=== PATIENT | female | born 1965 | race African-American/Black ===

== ENCOUNTER 2017-12-11 12:42 | Emergency (ER) | payer MEDICAID ==
[2017-12-11] MEDS ORDERED: Ketorolac 60 MG/2 ML SDV IM ONE (13:41)
--- NOTE | 2017-12-11 13:59 | CR ---
EXAMINATION: Left ankle HISTORY: Pain COMPARISON: None TECHNIQUE: 3 views FINDINGS/IMPRESSION: There is an oblique distal fibular fracture identified, essentially nondisplaced . Ankle mortise and talar dome appear preserved. Bone mineralization and joint spaces otherwise appea r normal.
--- NOTE | 2017-12-11 14:10 | EDM.PDOC ---
ED HPI GENERAL MEDICAL PROBLEM - General Chief Complaint: Lower Extremity Injury/Pain Stated Complaint: FALL Time Seen by Provider: 12/11/17 12:59 - History of Present Illness INITIAL COMMENTS - FREE TEXT/NARRATIVE: HISTORY AND PHYSICAL: History of present illness: Patient is a 52-year-old female who presents to the emergency room with complaints of left lateral ankle pain after slipping and falling on the ice. She denies hitting her head or any loss of consciousness. She does have some soft tissue swelling and pain when bearing weight. Denies any previous injury or surgery to the affected extremity. Denies any numbness, tingling of the extremity. Review of systems: As per history of present illness and below otherwise all systems reviewed and negative. Past medical history: As per history of present illness and as reviewed below otherwise noncontributory. Surgical history: As per history of present illness and as reviewed below otherwise noncontributory. Social history: No reported history of drug or alcohol abuse. Family history: As per history of present illness and as reviewed below otherwise noncontributory. Physical exam: Gen.: Well-developed and well-nourished 52-year-old -[place] female. Alert and oriented. Nontoxic appearing and in no acute distress. HEENT: Atraumatic, normocephalic, pupils reactive, negative for conjunctival pallor or scleral icterus, mucous membranes moist, throat clear, neck supple, nontender, trachea midline. Lungs: Clear to auscultation, breath sounds equal bilaterally, chest nontender. Heart: S1S2, regular, negative for clicks, rubs, or JVD. Abdomen: Soft, nondistended, nontender. Negative for masses or hepatosplenomegaly. Negative for costovertebral tenderness. Pelvis: Stable nontender. Genitourinary: Deferred. Rectal: Deferred. Extremities: Soft tissue swelling noted over the left lateral ankle, tender with palpation. Strong pedal pulses. Capillary refill less than 3 seconds. Good flexion and dorsiflexion. Skin is intact, warm, dry. negative for cords or calf pain. Neurovascular unremarkable. Neuro: Awake, alert, oriented. Cranial nerves II through XII unremarkable. Cerebellum unremarkable. Motor and sensory unremarkable throughout. Exam nonfocal. Diagnostics: X-ray Therapeutics: Toradol, half cast posterior splint, crutches Impression: Left nondisplaced fibular fracture Plan: 1. Please keep the splint that has been applied on the extremity. Use crutches to be nonweightbearing. Ice, elevate and rest the affected extremity. A prescription for [place] has been provided for you. This medication is a narcotic and may make you drowsy, do not take it while driving or needing to be functioning at work. He may take Tylenol and/or ibuprofen as needed for breakthrough pain. To not exceed 4 g of Tylenol in a 24-hour period. 2. As we discussed you need to follow-up with Orthopedics for follow-up within the next week. 3. Return to the ED as needed and as discussed. Definitive disposition and diagnosis as appropriate pending reevaluation and review of above. Onset: Today Duration: Hour(s): Location: Reports: Lower Extremity, Left Left Ankle Pain Score (Numeric/FACES): 10 - Related Data Allergies Allergy/AdvReac Type Severity Reaction Status Date / Time See scanned document Allergy Other Uncoded 12/11/17 12:55 Home Meds: Home Meds Gabapentin [Neurontin] 200 mg PO BID 12/11/17 [History] Sertraline [Zoloft] 100 mg PO DAILY 12/11/17 [History] traZODone HCl [Trazodone HCl] 50 mg PO BEDTIME 12/11/17 [History] Past Medical History Respiratory History: Reports: Asthma Psychiatric History: Reports: Depression Oncologic (Cancer) History: Reports: Colon - Past Surgical History GI Surgical History: Reports: Colon, Other (See Below) Other GI Surgeries/Procedures: sugery for colon cancer Female Surgical History: Reports: Section Social & Family History - Tobacco Use Smoking Status *Q: Never Smoker Second Hand Smoke Exposure: No - Caffeine Use Caffeine Use: Reports: Coffee - Recreational Drug Use Recreational Drug Use: No Review of Systems - Review of Systems Review Of Systems: ROS reveals no pertinent complaints other than HPI. ED EXAM, GENERAL - Physical Exam Exam: See Below (See dictation) Course - Vital Signs Last Recorded V/S: Last Vital Signs Temp 97.4 F 12/11/17 12:54 Pulse 73 12/11/17 12:54 Resp 16 12/11/17 12:54 BP 146/78 H 12/11/17 12:54 Pulse Ox 98 12/11/17 12:54 - Orders/Labs/Meds Meds: Medications Discontinued Medications Generic Name Dose Route Start Last Admin Trade Name Andi PRN Reason Stop Dose Admin Ketorolac Tromethamine 60 mg 12/11/17 13:41 Toradol IM 12/11/17 13:42 ONETIME ONE Departure - Departure Time of Disposition: 14:09 Disposition: Home, Self-Care 01 Condition: Good Clinical Impression: Closed fibular fracture Qualifiers: Encounter type: initial encounter Fibula location: distal Fracture morphology: unspecified fracture morphology Laterality: left Qualified Code(s): S82.832A - Other fracture of upper and lower end of left fibula, initial encounter for closed fracture - Discharge Information Referrals: PCP,None [Primary Care Provider] - Additional Instructions: My general discharge The following information is given to patients seen in the emergency department who are being discharged to home. This information is to outline your options for follow-up care. We provide all patients seen in our emergency department with a follow-up referral. The need for follow-up, as well as the timing and circumstances, are variable depending upon the specifics of your emergency department visit. If you don't have a primary care physician on staff, we will provide you with a referral. We always advise you to contact your personal physician following an emergency department visit to inform them of the circumstance of the visit and for follow-up with them and/or the need for any referrals to a consulting specialist. The emergency department will also refer you to a specialist when appropriate. This referral assures that you have the opportunity for follow-up care with a specialist. All of these measure are taken in an effort to provide you with optimal care, which includes your follow-up. Under all circumstances we always encourage you to contact your private physician who remains a resource for coordinating your care. When calling for follow-up care, please make the office aware that this follow-up is from your recent emergency room visit. If for any reason you are refused follow-up, please contact the [facility] Emergency Department at and asked to speak to the emergency department charge nurse. [facility] [address] [place] [address] [id number] [facility] Professional Building [address] [place] [address], [address] [place] [address] 1. Please keep the splint that has been applied on the extremity. Use crutches to be nonweightbearing. Ice, elevate and rest the affected extremity. A prescription for [place] has been provided for you. This medication is a narcotic and may make you drowsy, do not take it while driving or needing to be functioning at work. He may take Tylenol and/or ibuprofen as needed for breakthrough pain. To not exceed 4 g of Tylenol in a 24-hour period. 2. As we discussed you need to follow-up with Orthopedics for follow-up within the next week. 3. Return to the ED as needed and as discussed.
== END 2017-12-11 15:35 | disposition home or self-care (01) ==
LOC: MW.ED 12:42
DX: S82.832A Other fracture of upper and lower end of left fibula, initial encounter for closed fracture (principal); F32.9 Major depressive disorder, single episode, unspecified; Z79.899 Other long term (current) drug therapy; W00.0XXA Fall on same level due to ice and snow, initial encounter
CPT/HCPCS: 73610; 96372; 99283; J1885

== ENCOUNTER 2018-05-27 00:24 | Emergency (ER) | payer MEDICAID ==
[2018-05-27] MEDS ORDERED: Sodium Chloride 0.9% 2.5 ML Syringe FLUSH PRN (00:26)
[2018-05-27] MEDS ORDERED: Aspirin 81 MG Tab.Chew PO ONE (00:26)
[2018-05-27] MEDS ORDERED: Sodium Chloride 0.9% 10 ML Syringe FLUSH PRN ×2 (00:26)
[2018-05-27] MEDS ORDERED: Albuterol/Ipratropium 3.0-0.5 MG/3 ML Neb Soln NEB ONE (00:27)
--- NOTE | 2018-05-27 00:28 | EDM.PDOC ---
ED HPI GENERAL MEDICAL PROBLEM - General Chief Complaint: Chest Pain Stated Complaint: CHEST PAINS Time Seen by Provider: 05/27/18 00:28 Source of Information: Reports: Patient History Limitations: Reports: No Limitations - History of Present Illness INITIAL COMMENTS - FREE TEXT/NARRATIVE: HISTORY AND PHYSICAL: History of present illness: 53-year-old female presenting to emergency department with chief complaint of chest tightness 4 days with past medical history of depression/anxiety, asthma , and left ankle fracture. Patient states that on Friday approximate 4 days ago she began to have some chest tightness. States it was intermittent and substernal without radiation. Today states that the chest tightness has been constant and more severe so she came in to the emergency department for further evaluation. States that the chest tightness is substernal burning in sensation, non-radiating but with some associated diaphoresis. No nausea or vomiting. Patient does not have a significant cardiac history. She does have some shortness of breath with this. States that she has a history of asthma but only takes a rescue inhaler as needed. She also had a left ankle fracture in November. It has been in a boot and she has been doing physical therapy. Denies any surgery. No history of coagulapathies. Patient also was recently diagnosed with a sinus infection on of last week and is currently taking amoxicillin for this. She currently denies any palpitations, syncopal episodes, or focal neurologic deficits. On initial exam patient does have left calf pain associated with her left ankle fracture. She has generalized decreased breath sounds specifically bilateral lower lobes but no wheezing. Chest pain is not producible. Initial EKG showed sinus tach cardia with a rate of [address] changes. Review of systems: As per history of present illness and below otherwise all systems reviewed and negative. Past medical history: As per history of present illness and as reviewed below otherwise noncontributory. Surgical history: As per history of present illness and as reviewed below otherwise noncontributory. Social history: No reported history of drug or alcohol abuse. Family history: As per history of present illness and as reviewed below otherwise noncontributory. Physical exam: HEENT: Atraumatic, normocephalic, pupils reactive, negative for conjunctival pallor or scleral icterus, mucous membranes moist, throat clear, neck supple, nontender, trachea midline. Lungs: Decreased breath sounds bilateral lower lobes, breath sounds equal bilaterally, chest nontender. Heart: S1S2, regular, negative for clicks, rubs, or JVD. Abdomen: Soft, nondistended, nontender. Negative for masses or hepatosplenomegaly. Negative for costovertebral tenderness. Pelvis: Stable nontender. Genitourinary: Deferred. Rectal: Deferred. Extremities: Patient has a walking boot on the left lower extremity, negative for cords or calf pain. Neurovascular unremarkable. Neuro: Awake, alert, oriented. Cranial nerves II through XII unremarkable. Cerebellum unremarkable. Motor and sensory unremarkable throughout. Exam nonfocal. Diagnostics: CBC, CMP, troponin, INR, d-dimer, CTA, UA/UC Therapeutics: ASA 324mg PO, Duo-nebx1, Famotidine 20 mg IV x1, Solumedrol 125 mg IV x1 Impression: Acute asthma exacerbation Atypical chest pain Plan: CBC, CMP, troponin, INR, hCG were all unremarkable. EKG showed no significant ST changes. Patient's d-dimer was elevated at 2.58 most likely secondary to her fracture however we did do a CTA which showed no evidence of pulmonary embolism. Patient most likely has acute asthma exacerbation from her recent sinusitis and viral illness. She should continue to take her amoxicillin for sinusitis and I did describe her an inhaler as she does not have one currently. She should use it every 4-6 hours for 5 days. I also gave her 125 mg Solu- Medrol 1. Secondary to her fracture did not prescribe a burst dose of steroids secondary to decreased wound healing on her fracture. She is going to follow-up with her primary care provider Randi Cabral in the clinic and return to emergency department if she has any new or worsening symptoms. Definitive disposition and diagnosis as appropriate pending reevaluation and review of above. chest Pain Score (Numeric/FACES): 7 - Related Data Allergies Allergy/AdvReac Type Severity Reaction Status Date / Time No Known Allergies Allergy Verified 05/27/18 00:34 Home Meds: Home Meds Gabapentin [Neurontin] 200 mg PO BID 12/11/17 [History] Sertraline [Zoloft] 100 mg PO DAILY 12/11/17 [History] Amoxicillin 250 mg PO BID 05/27/18 [History] Meloxicam 0 mg PO DAILY 05/27/18 [History] Past Medical History Respiratory History: Reports: Asthma Psychiatric History: Reports: Depression Oncologic (Cancer) History: Reports: Colon - Past Surgical History GI Surgical History: Reports: Colon, Other (See Below) Other GI Surgeries/Procedures: sugery for colon cancer Female Surgical History: Reports: Section Social & Family History - Caffeine Use Caffeine Use: Reports: Coffee ED ROS GENERAL - Review of Systems Review Of Systems: ROS reveals no pertinent complaints other than HPI. ED EXAM, GENERAL - Physical Exam Exam: See Below Course - Vital Signs Last Recorded V/S: Last Vital Signs Temp 96.3 F 05/27/18 00:25 Pulse 110 H 05/27/18 00:25 Resp 20 05/27/18 00:25 BP 138/93 H 05/27/18 00:25 Pulse Ox 100 05/27/18 01:38 - Orders/Labs/Meds Orders: Active Orders 24 hr Category Date Time Status Cardiac Monitoring [RC] . DIRECTED Care 05/27/18 00:26 Active EKG Documentation Completion [RC] STAT Care 05/27/18 00:26 Active Oxygen Therapy [RC] ASDIRECTED Care 05/27/18 00:26 Active Pulse Oximetry [RC] ASDIRECTED Care 05/27/18 00:26 Active RT Aerosol Therapy [RC] ASDIRECTED Care 05/27/18 00:27 Active Chest w Cont [CT] Stat Exams 05/27/18 01:32 Stop Req PE Chest [Ang Chest] [CT] Stat Exams 05/27/18 01:39 Taken HCG QUALITATIVE,URINE [URCHEM] Stat Lab 05/27/18 01:16 Ordered UA W/MICROSCOPIC [URIN] Stat Lab 05/27/18 01:15 Ordered Sodium Chloride 0.9% [Saline Flush] Med 05/27/18 00:26 Active 10 ml FLUSH ASDIRECTED PRN Sodium Chloride 0.9% [Saline Flush] Med 05/27/18 00:26 Active 10 ml FLUSH ASDIRECTED PRN Sodium Chloride 0.9% [Saline Flush] Med 05/27/18 00:26 Active 2.5 ml FLUSH ASDIRECTED PRN Saline Lock Insert [OM.PC] Stat Oth 05/27/18 00:26 Ordered Medication Orders Sodium Chloride (Saline Flush) 10 ml FLUSH ASDIRECTED PRN PRN Reason: Keep Vein Open Sodium Chloride (Saline Flush) 10 ml FLUSH ASDIRECTED PRN PRN Reason: Keep Vein Open Sodium Chloride (Saline Flush) 2.5 ml FLUSH ASDIRECTED PRN PRN Reason: Keep Vein Open Labs: Laboratory Tests 05/27/18 05/27/18 05/27/18 Range/Units 00:25 00:25 00:35 WBC 6.62 (4.0-11.0) K/uL RBC 3.68 L (4.30-5.90) M/uL Hgb 10.7 L (12.0-16.0) g/dL Hct 33.1 L (36.0-46.0) % MCV 89.9 (80.0-98.0) fL MCH 29.1 (27.0-32.0) pg MCHC 32.3 (31.0-37.0) g/dL RDW Std Deviation 41.8 (28.0-62.0) fl RDW Coeff of Grace 13 (11.0-15.0) % Plt Count 359 (150-400) K/uL MPV 9.70 (7.40-12.00) fL Neut % (Auto) 66.9 (48.0-80.0) % Lymph % (Auto) 22.1 (16.0-40.0) % [place] % (Auto) 10.0 (0.0-15.0) % Eos % (Auto) 0.8 (0.0-7.0) % Baso % (Auto) 0.2 (0.0-1.5) % Neut # (Auto) 4.4 (1.4-5.7) K/uL Lymph # (Auto) 1.5 (0.6-2.4) K/uL [place] # (Auto) 0.7 (0.0-0.8) K/uL Eos # (Auto) 0.1 (0.0-0.7) K/uL Baso # (Auto) 0.0 (0.0-0.1) K/uL INR 1.06 D-Dimer, Quantitative 2.58 H (0.0-0.52) mg/LFEU Sodium 142 (136-145) mmol/L Potassium 3.8 (3.5-5.1) mmol/L Chloride 108 H (98-107) mmol/L Carbon Dioxide 28.6 (21.0-32.0) mmol/L BUN 13 (7.0-18.0) mg/dL Creatinine 0.8 (0.6-1.0) mg/dL Est Cr Clr Drug Dosing 72.34 mL/min Estimated GFR (MDRD) > 60.0 ml/min Glucose 156 H (74-106) mg/dL Calcium 9.0 (8.5-10.1) mg/dL Total Bilirubin 0.3 (0.2-1.0) mg/dL AST 21 (15-37) IU/L ALT 53 (14-63) IU/L Alkaline Phosphatase 157 H (46-116) U/L Troponin I < 0.050 (0.000-0.056) ng/mL Total Protein 7.5 (6.4-8.2) g/dL Albumin 2.7 L (3.4-5.0) g/dL Globulin 4.8 H (2.0-3.5) g/dL Albumin/Globulin Ratio 0.6 L (1.3-2.8) Urine Color Urine Appearance Urine pH (5.0-8.0) Ur Specific [place] (1.001-1.035) Urine Protein (NEGATIVE) mg/dL Urine Glucose (UA) (NEGATIVE) mg/dL Urine Ketones (NEGATIVE) mg/dL Urine Occult Blood (NEGATIVE) Urine Nitrite (NEGATIVE) Urine Bilirubin (NEGATIVE) Urine Urobilinogen (<2.0) EU/dL Ur Leukocyte Esterase (NEGATIVE) Urine RBC (0-2/HPF) Urine WBC (0-5/HPF) Ur Epithelial Cells (NONE-FEW) Amorphous Sediment (NEGATIVE) Urine Bacteria (NEGATIVE) Urine HCG, Qual (NEGATIVE) 05/27/18 05/27/18 Range/Units 01:15 01:16 WBC (4.0-11.0) K/uL RBC (4.30-5.90) M/uL Hgb (12.0-16.0) g/dL Hct (36.0-46.0) % MCV (80.0-98.0) fL MCH (27.0-32.0) pg MCHC (31.0-37.0) g/dL RDW Std Deviation (28.0-62.0) fl RDW Coeff of Grace (11.0-15.0) % Plt Count (150-400) K/uL MPV (7.40-12.00) fL Neut % (Auto) (48.0-80.0) % Lymph % (Auto) (16.0-40.0) % [place] % (Auto) (0.0-15.0) % Eos % (Auto) (0.0-7.0) % Baso % (Auto) (0.0-1.5) % Neut # (Auto) (1.4-5.7) K/uL Lymph # (Auto) (0.6-2.4) K/uL [place] # (Auto) (0.0-0.8) K/uL Eos # (Auto) (0.0-0.7) K/uL Baso # (Auto) (0.0-0.1) K/uL INR D-Dimer, Quantitative (0.0-0.52) mg/LFEU Sodium (136-145) mmol/L Potassium (3.5-5.1) mmol/L Chloride (98-107) mmol/L Carbon Dioxide (21.0-32.0) mmol/L BUN (7.0-18.0) mg/dL Creatinine (0.6-1.0) mg/dL Est Cr Clr Drug Dosing mL/min Estimated GFR (MDRD) ml/min Glucose (74-106) mg/dL Calcium (8.5-10.1) mg/dL Total Bilirubin (0.2-1.0) mg/dL AST (15-37) IU/L ALT (14-63) IU/L Alkaline Phosphatase (46-116) U/L Troponin I (0.000-0.056) ng/mL Total Protein (6.4-8.2) g/dL Albumin (3.4-5.0) g/dL Globulin (2.0-3.5) g/dL Albumin/Globulin Ratio (1.3-2.8) Urine Color YELLOW Urine Appearance CLEAR Urine pH 5.5 (5.0-8.0) Ur Specific [place] >= 1.030 (1.001-1.035) Urine Protein NEGATIVE (NEGATIVE) mg/dL Urine Glucose (UA) NEGATIVE (NEGATIVE) mg/dL Urine Ketones NEGATIVE (NEGATIVE) mg/dL Urine Occult Blood SMALL H (NEGATIVE) Urine Nitrite NEGATIVE (NEGATIVE) Urine Bilirubin NEGATIVE (NEGATIVE) Urine Urobilinogen 0.2 (<2.0) EU/dL Ur Leukocyte Esterase NEGATIVE (NEGATIVE) Urine RBC 0-2 (0-2/HPF) Urine WBC 2-3 (0-5/HPF) Ur Epithelial Cells FEW (NONE-FEW) Amorphous Sediment FEW (NEGATIVE) Urine Bacteria FEW (NEGATIVE) Urine HCG, Qual NEGATIVE (NEGATIVE) Meds: Medications Generic Name Dose Route Start Last Admin Trade Name Freq PRN Reason Stop Dose Admin Sodium Chloride 10 ml 05/27/18 00:26 Saline Flush FLUSH ASDIRECTED PRN Keep Vein Open Sodium Chloride 10 ml 05/27/18 00:26 Saline Flush FLUSH ASDIRECTED PRN Keep Vein Open Sodium Chloride 2.5 ml 05/27/18 00:26 Saline Flush FLUSH ASDIRECTED PRN Keep Vein Open Discontinued Medications Generic Name Dose Route Start Last Admin Trade Name Freq PRN Reason Stop Dose Admin Albuterol/Ipratropium 3 ml 05/27/18 00:27 05/27/18 00:38 Duoneb 3.0-0.5 Mg/3 Ml NEB 05/27/18 00:28 3 ml ONETIME ONE Administration Aspirin 324 mg 05/27/18 00:26 05/27/18 00:38 Aspirin PO 05/27/18 00:27 324 mg ONETIME ONE Administration Famotidine 20 mg 05/27/18 02:51 Pepcid IVPUSH 05/27/18 02:52 ONETIME ONE Iopamidol 50 ml 05/27/18 02:16 05/27/18 02:17 Isovue Multipack-370 (76%) IVPUSH 05/27/18 02:17 50 ml ONETIME STA Administration Methylprednisolone Sodium Succinate 125 mg 05/27/18 02:50 Solu-Medrol IVPUSH 05/27/18 02:51 ONETIME ONE Departure - Departure Time of Disposition: 02:56 Disposition: Home, Self-Care 01 Condition: Good Clinical Impression: Acute exacerbation of asthma with allergic rhinitis - Discharge Information Referrals: PCP,None [Primary Care Provider] - Forms: ED Department Discharge Additional Instructions: My general discharge The following information is given to patients seen in the emergency department who are being discharged to home. This information is to outline your options for follow-up care. We provide all patients seen in our emergency department with a follow-up referral. The need for follow-up, as well as the timing and circumstances, are variable depending upon the specifics of your emergency department visit. If you don't have a primary care physician on staff, we will provide you with a referral. We always advise you to contact your personal physician following an emergency department visit to inform them of the circumstance of the visit and for follow-up with them and/or the need for any referrals to a consulting specialist. The emergency department will also refer you to a specialist when appropriate. This referral assures that you have the opportunity for follow-up care with a specialist. All of these measure are taken in an effort to provide you with optimal care, which includes your follow-up. Under all circumstances we always encourage you to contact your private physician who remains a resource for coordinating your care. When calling for follow-up care, please make the office aware that this follow-up is from your recent emergency room visit. If for any reason you are refused follow-up, please contact the [facility] Emergency Department at and asked to speak to the emergency department charge nurse. [facility] [address] [place] [address] Follow-up with primary care provider as we discussed. Use albuterol inhaler every 4-6 hours 5 days. Return to emergency department if any new or worsening symptoms. - My Orders Last 24 Hours: My Active Orders 05/27/18 00:26 Cardiac Monitoring [RC] . DIRECTED EKG Documentation Completion [RC] STAT Oxygen Therapy [RC] ASDIRECTED Pulse Oximetry [RC] ASDIRECTED Sodium Chloride 0.9% [Saline Flush] 10 ml FLUSH ASDIRECTED PRN Sodium Chloride 0.9% [Saline Flush] 10 ml FLUSH ASDIRECTED PRN Sodium Chloride 0.9% [Saline Flush] 2.5 ml FLUSH ASDIRECTED PRN Saline Lock Insert [OM.PC] Stat 05/27/18 00:27 RT Aerosol Therapy [RC] ASDIRECTED 05/27/18 01:15 UA W/MICROSCOPIC [URIN] Stat 05/27/18 01:16 HCG QUALITATIVE,URINE [URCHEM] Stat 05/27/18 01:32 Chest w Cont [CT] Stat 05/27/18 01:39 PE Chest [Ang Chest] [CT] Stat - Assessment/Plan Last 24 Hours: My Active Orders 05/27/18 00:26 Cardiac Monitoring [RC] . DIRECTED EKG Documentation Completion [RC] STAT Oxygen Therapy [RC] ASDIRECTED Pulse Oximetry [RC] ASDIRECTED Sodium Chloride 0.9% [Saline Flush] 10 ml FLUSH ASDIRECTED PRN Sodium Chloride 0.9% [Saline Flush] 10 ml FLUSH ASDIRECTED PRN Sodium Chloride 0.9% [Saline Flush] 2.5 ml FLUSH ASDIRECTED PRN Saline Lock Insert [OM.PC] Stat 05/27/18 00:27 RT Aerosol Therapy [RC] ASDIRECTED 05/27/18 01:15 UA W/MICROSCOPIC [URIN] Stat 05/27/18 01:16 HCG QUALITATIVE,URINE [URCHEM] Stat 05/27/18 01:32 Chest w Cont [CT] Stat 05/27/18 01:39 PE Chest [Ang Chest] [CT] Stat
[2018-05-27 01:06] LABS: CHLORIDE,CL 108 mmol/L (98-107); SODIUM,NA 142 mmol/L (136-145)
[2018-05-27] MEDS ORDERED: Iopamidol 755 MG/ML 500 ML Multipack Bottle IVPUSH STA (02:16)
[2018-05-27] MEDS ORDERED: methylPREDNISolone Sodium Succinate 125 MG/2 ML SDV IVPUSH ONE (02:50)
[2018-05-27] MEDS ORDERED: Famotidine 20 MG/2 ML SDV IVPUSH ONE (02:51)
--- NOTE | 2018-05-28 09:49 | CT ---
EXAM DATE: 05/27/18 PATIENT'S AGE: 53 Patient: MALIKA VENTURA Facility: [place], [place] Site . Site : [id number] Study: CT Chest Angio [id number] 2:21:22 AM Ordering Physician: Goyo Cifuentes Final Report: INDICATION: Shortness of breath TECHNIQUE: CT chest with i.v. contrast using pulmonary angiographic technique. Coronal and sagittal reformats were obtained. CONTRAST: 50 mL Isovue 370 COMPARISON: None FINDINGS: Cardiovascular: The pulmonary arteries are unremarkable in enhancement with no evidence of acute pulmonary embolism. The heart has an unremarkable appearance and size. No sign of aneurysm or dissection in the thoracic aorta. Mediastinum: No mass or adenopathy seen. Lungs: A 1 mm nodule is present in the superior segment of the left lower lobe, too small to further characterize. Plaque-like thickening seen along the left major fissure which may be due to an intrapulmonary lymph node. Pleura and pericardium: No sign of pleural effusion seen. No significant pericardial effusion is present. Chest wall and axilla: No mass or adenopathy seen. Bones: Unremarkable for age. Upper abdomen: Unremarkable. IMPRESSION: 1. No CT evidence of pulmonary emboli seen. Dictated by Jose Alfredo Varghese MD @ 05/27/2018 2:41:02 AM Please note that all CT scans at this facility use dose modulation, iterative reconstruction, and/or weight-based dosing when appropriate to reduce radiation dose to as low as reasonably achievable. Dictated by: Jose Alfredo Varghese MD @ 05/27/2018 02:41:08 (Electronic Signature) Report Signed by Proxy. [facility]
== END 2018-05-27 03:15 | disposition home or self-care (01) ==
LOC: MW.ED 00:24
DX: J45.901 Unspecified asthma with (acute) exacerbation (principal); F32.9 Major depressive disorder, single episode, unspecified; Z79.899 Other long term (current) drug therapy
CPT/HCPCS: 36415; 71275; 80053; 81001; 81025; 84484; 85025; 85379; 85610; 93005; 94640; 96374; 96375; 99285; A9270; J2930; Q9967

== ENCOUNTER 2019-08-07 03:14 | Observation (INO) | payer BC ==
[2019-08-07] MEDS ORDERED: Sodium Chloride 0.9% 10 ML Syringe FLUSH PRN (03:18)
[2019-08-07] MEDS ORDERED: Sodium Chloride 0.9% 2.5 ML Syringe FLUSH PRN (03:18)
[2019-08-07] MEDS ORDERED: Aspirin 81 MG Tab.Chew PO ONE (03:26)
[2019-08-07] MEDS ORDERED: Albuterol/Ipratropium 3.0-0.5 MG/3 ML Neb Soln NEB ONE (03:26)
[2019-08-07] MEDS ORDERED: Albuterol/Ipratropium 3.0-0.5 MG/3 ML Neb Soln ONE (03:27)
[2019-08-07] MEDS ORDERED: Nitroglycerin 0.4 MG Tab.SL ONE (03:29)
[2019-08-07] MEDS ORDERED: Aspirin 81 MG Tab.Chew ONE (03:29)
[2019-08-07] MEDS: Nitroglycerin 0.4 MG Tab.SL SL PRN ×2 (03:37→03:45)
--- NOTE | 2019-08-07 03:38 | EDM.PDOC ---
ED HPI GENERAL MEDICAL PROBLEM - General Chief Complaint: Chest Pain Stated Complaint: CHEST PAIN Time Seen by Provider: 08/07/19 03:18 - History of Present Illness INITIAL COMMENTS - FREE TEXT/NARRATIVE: HISTORY AND PHYSICAL: History of present illness: The patient is a 54-year-old female with a history of hypertension and non- insulin-dependent diabetes asthma anxiety and depression who follows at [facility] and presents with 5 days of on and off chest pain and one particular location and shortness of breath. The patient points just to the right of her sternum on her chest wall as the area of the discomfort and says she has had the pain on and off constantly over the last 5 days and it is associated with waxing and waning shortness of breath. She does not feel like this is an asthma attack but did try her inhaler yesterday to see if it would help and she did not feel any differently. She's had no fevers chills nausea vomiting or abdominal pain and no recent trauma to this area. She has no significant history of cardiac disease and has had a stress test in the past has had no recent testing. She has no significant social or family history and the patient was seen here May 2018 for a similar episode for which she had a full workup and did follow up with her provider in the clinic. As a result of that last visit she did not have a stress test echo or cardiology follow-up. Patient denies any leg swelling and has been eating and drinking normally. She did not take any medications this morning for this discomfort. When asked why she decided to come in at 3:30 in the morning she says that she rolled over in bed and the pain seemed to worsen so she thought she should get checked out. She did not go to see her clinic provider because she thought it would get better over time. On arrival she rated the chest pain as an 8/10 currently on my evaluation is a 5/10 without any intervention. It is not worsened by movement or shortness of breath. The patient also says that the chest pain does not worsen with activity and occurs randomly without any particular triggers. Review of systems: As per history of present illness and below otherwise all systems reviewed and negative. Past medical history: As per history of present illness and as reviewed below otherwise noncontributory. Surgical history: As per history of present illness and as reviewed below otherwise noncontributory. Social history: No reported history of drug or alcohol abuse. Family history: As per history of present illness and as reviewed below otherwise noncontributory. Physical exam: General: Well-developed well-nourished female who is nontoxic and vital signs are noted by me. She speaks clearly without breathlessness and moves easily without any distress HEENT: Atraumatic, normocephalic, negative for conjunctival pallor or scleral icterus, mucous membranes moist, throat clear, neck supple, nontender, trachea midline. Lungs: There is diminished air exchange throughout all lung [place] but there is no wheezing or stridor and no work of breathing, breath sounds equal bilaterally , chest with mildly tenderness Heart: S1S2, regular rate and rhythm no overt murmurs, negative for clicks, rubs , or JVD. Abdomen: Soft, nondistended, nontender. NABS Pelvis: deferred Genitourinary: Deferred. Rectal: Deferred. Extremities: Atraumatic, negative for cords or calf pain. Neurovascular unremarkable. Neuro: Awake, alert, oriented. Cranial nerves II through XII unremarkable. Cerebellum unremarkable. Motor and sensory unremarkable throughout. Exam nonfocal. Diagnostics: EKG chest x-ray CBC CMP troponin Therapeutics: IV O2 monitor, aspirin nitroglycerin sublingual duo neb Nitropaste Patient is moving air much better after duo neb but is still somewhat tight but there is no wheezing or stridor. The patient's pain was a 7/10 when nursing went in to give the nitros and after 2 sublingual nitros it is a 1-2/10. We have placed nitro paste. I discussed all testing results with the patient and daughter at bedside and advised 23 hour observation for rule out. After discussion with her daughter the patient is agreeable to this. [id number]: Case was discussed with Dr. Ulloa who agrees with observation admission Impression: Atypical episodic chest pain with dyspnea, rule out ACS; history of asthma Definitive disposition and diagnosis as appropriate pending reevaluation and review of above. chest Pain Score (Numeric/FACES): 8 - Related Data Allergies Allergy/AdvReac Type Severity Reaction Status Date / Time No Known Allergies Allergy Verified 08/07/19 03:21 Home Meds: Home Meds Losartan [Cozaar] 0 mg PO DAILY 09/15/18 [History] metFORMIN [Glucophage XR] 500 mg PO BID 09/15/18 [History] Albuterol [Ventolin HFA] 1 puff INH ASDIRECTED PRN 08/07/19 [History] buPROPion [Wellbutrin] 0 mg PO DAILY 08/07/19 [History] Past Medical History Other HEENT History: wears glasses Cardiovascular History: Reports: Hypertension Respiratory History: Reports: Asthma Gastrointestinal History: Reports: None Genitourinary History: Reports: None GEOLOGICAL AIDE History: Reports: Other Musculoskeletal History: pt wearing camboot, left leg "slipped on ice" Psychiatric History: Reports: Depression Endocrine/Metabolic History: Reports: Diabetes, Type II Hematologic History: Reports: None Immunologic History: Reports: None Oncologic (Cancer) History: Reports: Colon - Infectious Disease History Infectious Disease History: Reports: Chicken Pox - Past Surgical History GI Surgical History: Reports: Colon, Other (See Below) Other GI Surgeries/Procedures: sugery for colon cancer Female Surgical History: Reports: Section Social & Family History - Family History Family Medical History: Noncontributory - Tobacco Use Smoking Status *Q: Never Smoker - Caffeine Use Caffeine Use: Reports: Coffee - Recreational Drug Use Recreational Drug Use: No ED ROS GENERAL - Review of Systems Review Of Systems: ROS reveals no pertinent complaints other than HPI. ED EXAM, GENERAL - Physical Exam Exam: See Below (See dictation) Course - Vital Signs Last Recorded V/S: Last Vital Signs Temp 36.3 C 08/07/19 03:14 Pulse 86 08/07/19 03:14 Resp 18 08/07/19 03:14 BP 119/78 08/07/19 04:00 Pulse Ox 99 08/07/19 03:14 - Orders/Labs/Meds Orders: Active Orders 24 hr Category Date Time Status Patient Status [ADT] Stat ADT 08/07/19 04:10 Ordered Cardiac Monitoring [RC] . DIRECTED Care 08/07/19 03:18 Active EKG Documentation Completion [RC] STAT Care 08/07/19 03:18 Active Oxygen Therapy, ED [RC] ASDIRECTED Care 08/07/19 03:18 Active Pulse Oximetry [RC] ASDIRECTED Care 08/07/19 03:18 Active RT Aerosol Therapy [RC] ASDIRECTED Care 08/07/19 03:26 Active Chest 1V Frontal [CR] Stat Exams 08/07/19 03:19 Taken Nitroglycerin [Nitrostat] Med 08/07/19 03:26 Active 0.4 mg SL Q5M PRN Sodium Chloride 0.9% [Saline Flush] Med 08/07/19 03:18 Active 10 ml FLUSH ASDIRECTED PRN Sodium Chloride 0.9% [Saline Flush] Med 08/07/19 03:18 Active 2.5 ml FLUSH ASDIRECTED PRN Saline Lock Insert [OM.PC] Stat Oth 08/07/19 03:18 Ordered Medication Orders Nitroglycerin (Nitrostat) 0.4 mg SL Q5M PRN PRN Reason: Chest Pain Last Admin: 08/07/19 03:45 Dose: 0.4 mg Admin: 08/07/19 03:37 Dose: 0.4 mg Sodium Chloride (Saline Flush) 10 ml FLUSH ASDIRECTED PRN PRN Reason: Keep Vein Open Sodium Chloride (Saline Flush) 2.5 ml FLUSH ASDIRECTED PRN PRN Reason: Keep Vein Open Labs: Laboratory Tests 08/07/19 08/07/19 Range/Units 03:30 03:30 WBC 5.91 (4.0-11.0) K/uL RBC 4.02 L (4.30-5.90) M/uL Hgb 11.7 L (12.0-16.0) g/dL Hct 36.1 (36.0-46.0) % MCV 89.8 (80.0-98.0) fL MCH 29.1 (27.0-32.0) pg MCHC 32.4 (31.0-37.0) g/dL RDW Std Deviation 47.1 (28.0-62.0) fl RDW Coeff of Grace 14 (11.0-15.0) % Plt Count 234 (150-400) K/uL MPV 10.00 (7.40-12.00) fL Neut % (Auto) 51.4 (48.0-80.0) % Lymph % (Auto) 39.6 (16.0-40.0) % [place] % (Auto) 8.1 (0.0-15.0) % Eos % (Auto) 0.7 (0.0-7.0) % Baso % (Auto) 0.2 (0.0-1.5) % Neut # (Auto) 3.0 (1.4-5.7) K/uL Lymph # (Auto) 2.3 (0.6-2.4) K/uL [place] # (Auto) 0.5 (0.0-0.8) K/uL Eos # (Auto) 0.0 (0.0-0.7) K/uL Baso # (Auto) 0.0 (0.0-0.1) K/uL Nucleated RBC % 0.0 /100WBC Nucleated RBCs # 0 K/uL Sodium 142 (136-145) mmol/L Potassium 4.2 (3.5-5.1) mmol/L Chloride 105 (98-107) mmol/L Carbon Dioxide 26.0 (21.0-32.0) mmol/L BUN 19 H (7.0-18.0) mg/dL Creatinine 1.1 H (0.6-1.0) mg/dL Est Cr Clr Drug Dosing 52.00 mL/min Estimated GFR (MDRD) 51.6 ml/min Glucose 108 H (74-106) mg/dL Calcium 9.5 (8.5-10.1) mg/dL Total Bilirubin 0.2 (0.2-1.0) mg/dL AST 12 L (15-37) IU/L ALT 11 L (14-63) IU/L Alkaline Phosphatase 110 (46-116) U/L Troponin I < 0.050 (0.000-0.056) ng/mL Total Protein 7.0 (6.4-8.2) g/dL Albumin 3.4 (3.4-5.0) g/dL Globulin 3.6 (2.6-4.0) g/dL Albumin/Globulin Ratio 0.9 (0.9-1.6) Meds: Medications Generic Name Dose Route Start Last Admin Trade Name Freq PRN Reason Stop Dose Admin Nitroglycerin 0.4 mg 08/07/19 03:26 08/07/19 03:45 Nitrostat SL 0.4 mg Q5M PRN Administration Chest Pain Sodium Chloride 10 ml 08/07/19 03:18 Saline Flush FLUSH ASDIRECTED PRN Keep Vein Open Sodium Chloride 2.5 ml 08/07/19 03:18 Saline Flush FLUSH ASDIRECTED PRN Keep Vein Open Discontinued Medications Generic Name Dose Route Start Last Admin Trade Name Dcq PRN Reason Stop Dose Admin Albuterol/Ipratropium 3 ml 08/07/19 03:26 08/07/19 03:36 Duoneb 3.0-0.5 Mg/3 Ml NEB 08/07/19 03:27 3 ml ONETIME ONE Administration Albuterol/Ipratropium Confirm 08/07/19 03:27 08/07/19 03:38 Duoneb 3.0-0.5 Mg/3 Ml Administered 08/07/19 03:28 Not Given Dose 3 ml .ROUTE .STK-MED ONE Aspirin 324 mg 08/07/19 03:26 08/07/19 03:36 Aspirin PO 08/07/19 03:27 324 mg ONETIME ONE Administration Aspirin Confirm 08/07/19 03:29 08/07/19 03:37 Aspirin Administered 08/07/19 03:30 Not Given Dose 324 mg .ROUTE .STK-MED ONE Nitroglycerin Confirm 08/07/19 03:29 08/07/19 03:37 Nitrostat Administered 08/07/19 03:30 Not Given Dose 1.2 mg .ROUTE .STK-MED ONE Nitroglycerin 0.5 gm 08/07/19 03:58 08/07/19 04:06 Nitro-Bid 2% TOP 08/07/19 03:59 0.5 gm ONETIME ONE Administration Departure - Departure Time of Disposition: 04:11 Disposition: Refer to Observation Condition: Good Clinical Impression: Atypical chest pain Dyspnea, unspecified Qualifiers: Dyspnea type: unspecified Qualified Code(s): R06.00 - Dyspnea, unspecified - Discharge Information Forms: ED Department Discharge - My Orders Last 24 Hours: My Active Orders 08/07/19 03:18 Cardiac Monitoring [RC] . DIRECTED EKG Documentation Completion [RC] STAT Oxygen Therapy, ED [RC] ASDIRECTED Pulse Oximetry [RC] ASDIRECTED Sodium Chloride 0.9% [Saline Flush] 10 ml FLUSH ASDIRECTED PRN Sodium Chloride 0.9% [Saline Flush] 2.5 ml FLUSH ASDIRECTED PRN Saline Lock Insert [OM.PC] Stat 08/07/19 03:19 Chest 1V Frontal [CR] Stat 08/07/19 03:26 RT Aerosol Therapy [RC] ASDIRECTED Nitroglycerin [Nitrostat] 0.4 mg SL Q5M PRN 08/07/19 04:10 Patient Status [ADT] Stat - Assessment/Plan Last 24 Hours: My Active Orders 08/07/19 03:18 Cardiac Monitoring [RC] . DIRECTED EKG Documentation Completion [RC] STAT Oxygen Therapy, ED [RC] ASDIRECTED Pulse Oximetry [RC] ASDIRECTED Sodium Chloride 0.9% [Saline Flush] 10 ml FLUSH ASDIRECTED PRN Sodium Chloride 0.9% [Saline Flush] 2.5 ml FLUSH ASDIRECTED PRN Saline Lock Insert [OM.PC] Stat 08/07/19 03:19 Chest 1V Frontal [CR] Stat 08/07/19 03:26 RT Aerosol Therapy [RC] ASDIRECTED Nitroglycerin [Nitrostat] 0.4 mg SL Q5M PRN 08/07/19 04:10 Patient Status [ADT] Stat
[2019-08-07 03:57] LABS: BLOOD UREA NITROGEN,BUN 19 mg/dL (7.0-18.0); CHLORIDE,CL 105 mmol/L (98-107); GLUCOSE RANDOM 108 mg/dL (74-106); POTASSIUM,K 4.2 mmol/L (3.5-5.1); SODIUM,NA 142 mmol/L (136-145)
[2019-08-07] MEDS ORDERED: Nitroglycerin 2% Oint 1 GM UD Packet TOP ONE (03:58)
--- NOTE | 2019-08-07 04:27 | CR ---
INDICATION: Chest pain, shortness of breath TECHNIQUE: Chest radiograph 1 view COMPARISON: None FINDINGS: Mediastinum: The mediastinum is normal in appearance. The heart silhouette is normal in size and morphology. Lung: Both lungs are unremarkable in appearance. No sign of pleural effusion seen. No pneumothorax is identified. IMPRESSION: 1. No acute cardiopulmonary disease is seen. Dictated by: Jose Alfredo Varghese MD @ 08/07/2019 04:25:32 (Electronically Signed)
--- NOTE | 2019-08-07 07:50 | PCM.HP.2 ---
H&P History of Present Illness - General Date of Service: 08/07/19 Admit Problem/Dx: Admission Diagnosis/Problem Admission Diagnosis/Problem Chest pain Source of Information: Patient History Limitations: Reports: No Limitations - History of Present Illness Initial Comments - Free Text/Narative: The patient is an otherwise healthy 54-year-old lady who presented to the emergency department with a complaint of midsternal chest pain. The patient says that she has had pain located in the lower part of her sternum in the center which radiates minimally to the right side. The patient also reports that this is been going on for 5 days. She has denied any shortness of breath. She has had no specific aggravating or relieving factors although she has had increased discomfort when taking a deep breath. The patient had no specific initiating incident. The patient however, on further reflection said that she had pain in her lower sternum which started after eating and taking "all of her medications". She felt like something was stuck. The patient then drank water and this seemed to relieve the symptoms. Although she does have continued intermittent pain. The patient does not have any history of cardiac disease. She also had a workup in May 2018 for cardiac concern. The patient is diabetic and has been compliant with her medications. She also has a history of hypertension. The patient also has denied any associated symptoms such as nausea or vomiting or diaphoresis. Onset of Symptoms: Reports: Gradual Duration of Symptoms: Reports: Day(s):, Intermittent Location: Reports: Chest Quality: Reports: Pressure, Stabbing Severity: Mild Improves with: Reports: Medication, Rest Worsens with: Reports: None Context: Denies: Sick Contact Associated Symptoms: Reports: No Other Symptoms chest Pain Score (Numeric/FACES): 8 - Related Data Allergies/Adverse Reactions: Allergies Allergy/AdvReac Type Severity Reaction Status Date / Time No Known Allergies Allergy Verified 08/07/19 03:21 Home Medications: Home Meds Losartan [Cozaar] 0 mg PO DAILY 09/15/18 [History] metFORMIN [Glucophage XR] 500 mg PO BID 09/15/18 [History] Albuterol [Ventolin HFA] 1 puff INH ASDIRECTED PRN 08/07/19 [History] buPROPion [Wellbutrin] 0 mg PO DAILY 08/07/19 [History] Past Medical History Other HEENT History: wears glasses Cardiovascular History: Reports: Hypertension Respiratory History: Reports: Asthma Gastrointestinal History: Reports: None Genitourinary History: Reports: None [employer]PER[employer] History: Reports: Other Musculoskeletal History: pt wearing camboot, left leg "slipped on ice" Psychiatric History: Reports: Depression Endocrine/Metabolic History: Reports: Diabetes, Type II Hematologic History: Reports: None Immunologic History: Reports: None Oncologic (Cancer) History: Reports: Colon Dermatologic History: Reports: None - Infectious Disease History Infectious Disease History: Reports: Chicken Pox - Past Surgical History GI Surgical History: Reports: Colon, Other (See Below) Other GI Surgeries/Procedures: sugery for colon cancer Female Surgical History: Reports: Section Social & Family History - Family History Family Medical History: Noncontributory - Tobacco Use Smoking Status *Q: Never Smoker Second Hand Smoke Exposure: No - Caffeine Use Caffeine Use: Reports: None - Alcohol Use Alcohol Use History: No - Recreational Drug Use Recreational Drug Use: No H&P Review of Systems - Review of Systems: Review Of Systems: See Below General: Reports: Weakness HEENT: Reports: No Symptoms Pulmonary: Reports: Shortness of Breath Cardiovascular: Reports: Chest Pain Gastrointestinal: Reports: No Symptoms Genitourinary: Reports: No Symptoms Musculoskeletal: Reports: No Symptoms Skin: Reports: No Symptoms Psychiatric: Reports: No Symptoms Neurological: Reports: No Symptoms Hematologic/Lymphatic: Reports: No Symptoms Immunologic: Reports: No Symptoms Exam - Exam Exam: See Below - Vital Signs Vital Signs: Last Vital Signs Temp 35.9 C 08/07/19 04:45 Pulse 77 08/07/19 04:45 Resp 16 08/07/19 04:45 BP 143/77 H 08/07/19 04:45 Pulse Ox 100 08/07/19 04:45 Weight: 74.026 kg - Exam Quality Assessment: No: Supplemental Oxygen General: Alert, Oriented, Cooperative, Mild Distress HEENT: Conjunctiva Clear, EACs Clear, EOMI, Mucosa Moist & [place], Pupils Equal, PERRLA Neck: Supple, Trachea Midline Lungs: Clear to Auscultation, Normal Respiratory Effort Cardiovascular: Regular Rate, Regular Rhythm GI/Abdominal Exam: Normal Bowel Sounds, Soft, Non-Tender, No Distention. No: Guarding, Rigid, Rebound, Tender Back Exam: Normal Inspection, Full Range of Motion Extremities: Normal Inspection, Normal Range of Motion, No Pedal Edema Skin: Warm, Dry, Intact Neurological: Cranial Nerves Intact Neuro Extensive - Mental Status: Alert, Oriented x3 Neuro Extensive - Motor, Sensory, Reflexes: CN II-XII Intact Psychiatric: Alert, Normal Affect, Normal Mood - Patient Data Lab Results Last 24 hrs: Laboratory Results - last 24 hr 08/07/19 08/07/19 08/07/19 Range/Units 03:30 03:30 06:10 WBC 5.91 (4.0-11.0) K/uL RBC 4.02 L (4.30-5.90) M/uL Hgb 11.7 L (12.0-16.0) g/dL Hct 36.1 (36.0-46.0) % MCV 89.8 (80.0-98.0) fL MCH 29.1 (27.0-32.0) pg MCHC 32.4 (31.0-37.0) g/dL RDW Std Deviation 47.1 (28.0-62.0) fl RDW Coeff of Grace 14 (11.0-15.0) % Plt Count 234 (150-400) K/uL MPV 10.00 (7.40-12.00) fL Neut % (Auto) 51.4 (48.0-80.0) % Lymph % (Auto) 39.6 (16.0-40.0) % [place] % (Auto) 8.1 (0.0-15.0) % Eos % (Auto) 0.7 (0.0-7.0) % Baso % (Auto) 0.2 (0.0-1.5) % Neut # (Auto) 3.0 (1.4-5.7) K/uL Lymph # (Auto) 2.3 (0.6-2.4) K/uL [place] # (Auto) 0.5 (0.0-0.8) K/uL Eos # (Auto) 0.0 (0.0-0.7) K/uL Baso # (Auto) 0.0 (0.0-0.1) K/uL Nucleated RBC % 0.0 /100WBC Nucleated RBCs # 0 K/uL Sodium 142 (136-145) mmol/L Potassium 4.2 (3.5-5.1) mmol/L Chloride 105 (98-107) mmol/L Carbon Dioxide 26.0 (21.0-32.0) mmol/L BUN 19 H (7.0-18.0) mg/dL Creatinine 1.1 H (0.6-1.0) mg/dL Est Cr Clr Drug Dosing 52.00 mL/min Estimated GFR (MDRD) 51.6 ml/min Glucose 108 H (74-106) mg/dL POC Glucose 99 (60-110) mg/dL Calcium 9.5 (8.5-10.1) mg/dL Total Bilirubin 0.2 (0.2-1.0) mg/dL AST 12 L (15-37) IU/L ALT 11 L (14-63) IU/L Alkaline Phosphatase 110 (46-116) U/L Troponin I < 0.050 (0.000-0.056) ng/mL Total Protein 7.0 (6.4-8.2) g/dL Albumin 3.4 (3.4-5.0) g/dL Globulin 3.6 (2.6-4.0) g/dL Albumin/Globulin Ratio 0.9 (0.9-1.6) Result Diagrams: 08/07/19 03:30 08/07/19 03:30 EKG INTERPRETATION EKG Date: 08/07/19 Time: 03:19 Rhythm: NSR [place]: Normal P-Wave: Present QRS: Normal ST-T: Other (Borderline changes) QT: Prolonged (507 ms) Comparison: NA - No Prior EKG - Problem List (1) Atypical chest pain SNOMED Code(s): 197362841 ICD Code: R07.89 - OTHER CHEST PAIN Status: Acute Priority: High Current Visit: Yes (2) Diabetes mellitus type 2, controlled SNOMED Code(s): 78687992, 770177144 ICD Code: E11.9 - TYPE 2 DIABETES MELLITUS WITHOUT COMPLICATIONS Status: Acute Current Visit: Yes Qualifiers: Diabetes mellitus group home insulin use: without group home use Diabetes mellitus complication status: without complication Qualified Code(s): E11.9 - Type 2 diabetes mellitus without complications Problem List Initiated/Reviewed/Updated: Yes Orders Last 24hrs: Active Orders 24 hr Category Date Time Status Patient Status [ADT] Stat ADT 08/07/19 04:10 Active Blood Glucose Check, Bedside [[facility] 08/07/19 05:28 Active Pulse Oximetry [RC] ASDIRECTED Care 08/07/19 03:18 Active RT Aerosol Therapy [RC] ASDIRECTED Care 08/07/19 03:26 Active Telemetry Monitoring [Cardiac Monitoring] [RC] Q8H Care 08/07/19 05:29 Active ADA Diabetic [[place] [employer] Diet] [DIET Diet 08/07/19 Breakfast Active ] Heart Healthy Diet [DIET] Diet 08/07/19 Breakfast Active TROPONIN I [CHEM] Routine Lab 08/07/19 09:30 Ordered TROPONIN I [CHEM] Routine Lab 08/07/19 15:30 Ordered Nitroglycerin [Nitrostat] Med 08/07/19 03:26 Active 0.4 mg SL Q5M PRN Sodium Chloride 0.9% [Saline Flush] Med 08/07/19 03:18 Active 10 ml FLUSH ASDIRECTED PRN Sodium Chloride 0.9% [Saline Flush] Med 08/07/19 03:18 Active 2.5 ml FLUSH ASDIRECTED PRN Saline Lock Insert [OM.PC] Stat Oth 08/07/19 03:18 Ordered Medication Orders Nitroglycerin (Nitrostat) 0.4 mg SL Q5M PRN PRN Reason: Chest Pain Last Admin: 08/07/19 03:45 Dose: 0.4 mg Admin: 08/07/19 03:37 Dose: 0.4 mg Sodium Chloride (Saline Flush) 10 ml FLUSH ASDIRECTED PRN PRN Reason: Keep Vein Open Sodium Chloride (Saline Flush) 2.5 ml FLUSH ASDIRECTED PRN PRN Reason: Keep Vein Open Assessment/Plan Comment:: The patient is a 54-year-old lady who has been admitted secondary to atypical chest pain. This sounds related to esophageal type pain and I placed the patient on Bentyl 10 mg 4 times a day see if this helps with her pain. The patient will also have 2 troponins taken the third one returning this afternoon and if she has improved sufficiently she should be appropriate for discharge later this afternoon. The patient will also be kept on a heart healthy diet as tolerated. Her diet will be adjusted for her diabetes. The patient has been encouraged to ambulate. I have discussed with the patient risk factor specific for coronary artery disease. The patient has had 2 sets of troponins that are now negative and her EKG is unchanged in telemetry shows no events. The patient does have one other troponin scheduled for later this afternoon but I suspect that will be negative. The patient should have a follow-up with her primary care physician. The patient also is to have regular heart healthy diet as tolerated. She is also to have activity as tolerated. Pending a normal third troponin the patient will be discharged from acute hospitalization with recommendations listed above. This history and physical will also be considered as a discharge summary. - Mortality Measure Prognosis:: Good
[2019-08-07] MEDS ORDERED: Acetaminophen 325 MG Tab PO PRN (07:51)
[2019-08-07] MEDS ORDERED: Albuterol 8 GM Inhaler INH PRN (07:51)
[2019-08-07] MEDS ORDERED: oxyCODONE 5 MG Tab PO PRN (07:51)
[2019-08-07] MEDS: Heparin Sodium 5,000 Units/ML Vial SUBCUT SCH ×2 (08:13→16:46)
[2019-08-07] MEDS: Insulin Aspart 100 Units/ML 3 ML Pen SUBCUT SCH ×3 (08:18→17:38)
[2019-08-07] MEDS: Dicyclomine 10 MG Cap PO SCH ×2 (11:40→18:00)
== END 2019-08-07 17:40 | disposition home or self-care (01) ==
LOC: MW.ED 03:14 → MW.MS 04:10
PROVIDERS: ADMIT Internal Medicine; ATTEND Internal Medicine
DX: R07.2 Precordial pain (principal); I10 Essential (primary) hypertension; E11.9 Type 2 diabetes mellitus without complications; J45.909 Unspecified asthma, uncomplicated; F32.9 Major depressive disorder, single episode, unspecified; Z79.899 Other long term (current) drug therapy; Z79.84 Long term (current) use of oral hypoglycemic drugs
CPT/HCPCS: 36415; 71045; 80053; 82962; 84484; 85025; 93005; 94640; 99285; A9270; J1644; 96372; G0378; J7620-GY

== ENCOUNTER 2019-11-28 14:05 | Emergency (ER) | payer BC ==
--- NOTE | 2019-11-28 15:00 | EDM.PDOC ---
ED HPI GENERAL MEDICAL PROBLEM - General Chief Complaint: ENT Problem Stated Complaint: FACE SWELLING Time Seen by Provider: 11/28/19 14:25 Source of Information: Reports: Patient History Limitations: Reports: No Limitations - History of Present Illness INITIAL COMMENTS - FREE TEXT/NARRATIVE: HISTORY AND PHYSICAL: History of present illness: Patient is a 54-year-old female who presents to the ED today for concern of frontal jaw swelling that she woke up with this morning. Patient states that she is not having any pain at this time. Patient states she has had tooth issues in the past which have been similar to how she feels today. Patient states she has a health history of diabetes, hypothyroidism, and hypertension. Patient denies any other symptoms or concerns. Patient denies fever, chills, chest pain, shortness of breath, or cough. Denies headache, neck stiff ness, change in vision, syncope, or near syncope. Denies nausea, vomiting, abdominal pain, diarrhea, constipation, or dysuria. Has not noted any blood in urine or stool. Patient has been eating and drinking appropriately. Review of systems: As per history of present illness and below otherwise all systems reviewed and negative. Past medical history: As per history of present illness and as reviewed below otherwise noncontributory. Surgical history: As per history of present illness and as reviewed below otherwise noncontributory. Social history: See social history for further information Family history: As per history of present illness and as reviewed below otherwise noncontributory. Physical exam: General: Patient is alert, oriented, and in no acute distress. Patient sitting comfortably on exam table. HEENT: Atraumatic, normocephalic, pupils equal and reactive bilaterally, negative for conjunctival pallor or scleral icterus, mucous membranes moist, TMs normal bilaterally, throat clear, neck supple, nontender, trachea midline. No drooling or trismus noted. No meningeal signs. No hot potato voice noted. Patient does have mild swelling at the front left side of the mandible body without pain to palpation. Generalized poor dentition with multiple caries throughout the mouth. The adjacent gumline is also edematous and erythematous. Lungs: Clear to auscultation, breath sounds equal bilaterally, chest nontender. Heart: S1S2, regular rate and rhythm without overt murmur Abdomen: Soft, nondistended, nontender. Negative for masses or hepatosplenomegaly. Negative for costovertebral tenderness. Pelvis: Stable nontender. Genitourinary: Deferred. Rectal: Deferred. Skin: Intact, warm, dry. No lesions or rashes noted. Extremities: Atraumatic, negative for cords or calf pain. Neurovascular unremarkable. Neuro: Awake, alert, oriented. Cranial nerves II through XII unremarkable. Cerebellum unremarkable. Motor and sensory unremarkable throughout. Exam nonfocal. Notes: Discussed importance for follow-up with a primary care provider. Voices understanding and is agreeable to plan of care. Denies any further questions or concerns at this time. Diagnostics: None Therapeutics: None Prescription: Clindamycin Impression: Dental abscess Plan: 1. Please take medication as prescribed. 2. Tylenol and/or ibuprofen as directed and as needed for pain management. 3. Follow-up with a dentist and primary care provider for definitive care. Return to the ED as needed and as discussed. Definitive disposition and diagnosis as appropriate pending reevaluation and review of above. - Related Data Allergies Allergy/AdvReac Type Severity Reaction Status Date / Time Fish Containing Products Allergy Rash Verified 11/28/19 14:25 Home Meds: Home Meds Losartan [Cozaar] 0 mg PO DAILY 09/15/18 [History] metFORMIN [Glucophage XR] 500 mg PO BID 09/15/18 [History] Albuterol [Ventolin HFA] 1 puff INH ASDIRECTED PRN 08/07/19 [History] buPROPion [Wellbutrin] 0 mg PO DAILY 08/07/19 [History] Clindamycin HCl 300 mg PO TID 10 Days #30 capsule 11/28/19 [Rx] Past Medical History Other HEENT History: wears glasses Cardiovascular History: Reports: Hypertension Respiratory History: Reports: Asthma Gastrointestinal History: Reports: None Genitourinary History: Reports: None 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 Musculoskeletal History: pt wearing camboot, left leg "slipped on ice" Psychiatric History: Reports: Depression Endocrine/Metabolic History: Reports: Diabetes, Type II Hematologic History: Reports: None Immunologic History: Reports: None Oncologic (Cancer) History: Reports: Colon Dermatologic History: Reports: None - Infectious Disease History Infectious Disease History: Reports: Chicken Pox - Past Surgical History GI Surgical History: Reports: Colon, Other (See Below) Other GI Surgeries/Procedures: sugery for colon cancer Female Surgical History: Reports: Section Social & Family History - Family History Family Medical History: Noncontributory - Tobacco Use Smoking Status *Q: Never Smoker Second Hand Smoke Exposure: No - Caffeine Use Caffeine Use: Reports: Coffee - Recreational Drug Use Recreational Drug Use: No ED ROS GENERAL - Review of Systems Review Of Systems: Comprehensive ROS is negative, except as noted in HPI. ED EXAM, GENERAL - Physical Exam Exam: See Below (see dictation) Course - Vital Signs Last Recorded V/S: Last Vital Signs Temp 97.1 F 11/28/19 14:26 Pulse Resp 16 11/28/19 14:26 BP 141/76 H 11/28/19 14:26 Pulse Ox 97 11/28/19 14:26 Departure - Departure Time of Disposition: 14:57 Disposition: Home, Self-Care 01 Clinical Impression: Dental abscess - Discharge Information Prescriptions: Clindamycin HCl 300 mg PO TID 10 Days #30 capsule Referrals: Clay Rojas MD [Primary Care Provider] - Additional Instructions: The following information is given to patients seen in the emergency department who are being discharged to home. This information is to outline your options for follow-up care. We provide all patients seen in our emergency department with a follow-up referral. The need for follow-up, as well as the timing and circumstances, are variable depending upon the specifics of your emergency department visit. If you don't have a primary care physician on staff, we will provide you with a referral. We always advise you to contact your personal physician following an emergency department visit to inform them of the circumstance of the visit and for follow-up with them and/or the need for any referrals to a consulting specialist. The emergency department will also refer you to a specialist when appropriate. This referral assures that you have the opportunity for follow-up care with a specialist. All of these measure are taken in an effort to provide you with optimal care, which includes your follow-up. Under all circumstances we always encourage you to contact your private physician who remains a resource for coordinating your care. When calling for follow-up care, please make the office aware that this follow-up is from your recent emergency room visit. If for any reason you are refused follow-up, please contact the [facility] Emergency Department at and asked to speak to the emergency department charge nurse. [facility] [address] [place] [address] [facility] [address] [place] [address] 1. Please take medication as prescribed. 2. Tylenol and/or ibuprofen as directed and as needed for pain management. 3. Follow-up with a dentist and primary care provider for definitive care. Return to the ED as needed and as discussed. Sepsis Event Note - Evaluation Sepsis Screening Result: No Definite Risk - Focused Exam Vital Signs: Vital Signs Temp Resp BP Pulse Ox 11/28/19 14:26 97.1 F 16 141/76 H 97 Date Exam was Performed: 11/28/19 Time Exam was Performed: 14:56
== END 2019-11-28 15:08 | disposition home or self-care (01) ==
LOC: MW.ED 14:05
DX: K04.7 Periapical abscess without sinus (principal); K02.9 Dental caries, unspecified; I10 Essential (primary) hypertension; E11.9 Type 2 diabetes mellitus without complications; F32.9 Major depressive disorder, single episode, unspecified; J45.909 Unspecified asthma, uncomplicated; Z79.84 Long term (current) use of oral hypoglycemic drugs; Z79.899 Other long term (current) drug therapy; Z91.013 Allergy to seafood
CPT/HCPCS: 99282; 99283

== ENCOUNTER 2020-10-14 05:28 | Emergency (ER) | payer BC, MEDICAID ==
[2020-10-14] MEDS ORDERED: Sodium Chloride 0.9% 10 ML Syringe FLUSH PRN (05:31)
[2020-10-14] MEDS ORDERED: Sodium Chloride 0.9% 2.5 ML Syringe FLUSH PRN (05:31)
--- NOTE | 2020-10-14 05:33 | EDM.PDOC ---
<Audie Merchant Ivan - Last Filed: 10/14/20 10:21> ED HPI GENERAL MEDICAL PROBLEM - General Stated Complaint: SOLLOWEN MOUTH AND CHEST PAIN Time Seen by Provider: 10/14/20 05:30 - Related Data Allergies Allergy/AdvReac Type Severity Reaction Status Date / Time Fish Containing Products Allergy Rash Verified 11/28/19 14:25 Home Meds: Home Meds Albuterol [Ventolin HFA] 1 puff INH ASDIRECTED PRN 08/07/19 [History] buPROPion [Wellbutrin] 0 mg PO DAILY 08/07/19 [History] Levothyroxine [Synthroid] 0 mcg PO ACBREAKFAST 10/14/20 [History] amLODIPine [Norvasc] 10 mg PO DAILY 30 Days #30 tab 10/14/20 [Rx] diphenhydrAMINE [Benadryl] 50 mg PO Q6HR PRN #20 cap 10/14/20 [Rx] predniSONE [Prednisone] 50 mg PO DAILY #5 tablet 10/14/20 [Rx] predniSONE [Prednisone] 50 mg PO DAILY 4 Days #4 tablet 10/14/20 [Rx] sitaGLIPtin Phos/Metformin HCl [Janumet 50-500 MG] 0 PO BID 10/14/20 [History] Course - Re-Assessments/Exams Free Text/Narrative Re-Assessment/Exam: 10/14/20 10:18 Patient tropes are negative x2. Patient swelling is going down. Will stop the losartan and replaced with amlodipine. Patient will follow with her primary c are physician to continue monitoring her blood pressure. Patient given strict return precautions for the swelling. Departure - Departure Time of Disposition: 10:19 Disposition: Home, Self-Care 01 Clinical Impression: Angioedema, Chest pain - Discharge Information Prescriptions: diphenhydrAMINE [Benadryl] 50 mg PO Q6HR PRN #20 cap PRN Reason: Allergies amLODIPine [Norvasc] 10 mg PO DAILY 30 Days #30 tab predniSONE [Prednisone] 50 mg PO DAILY #5 tablet predniSONE [Prednisone] 50 mg PO DAILY 4 Days #4 tablet Instructions: Angioedema, [id number], Nonspecific Chest Pain, Adult, [id number] Referrals: PCP,None [Primary Care Provider] - Forms: ED Department Discharge Additional Instructions: The need for follow-up, as well as the timing and circumstances, are variable depending upon the specifics of your emergency department visit. If you don't have a primary care physician on staff, we will provide you with a referral. We always advise you to contact your personal physician following an emergency department visit to inform them of the circumstance of the visit and for follow-up with them and/or the need for any referrals to a consulting specialist. The emergency department will also refer you to a specialist when appropriate. This referral assures that you have the opportunity for follow-up care with a specialist. All of these measure are taken in an effort to provide you with optimal care, which includes your follow-up. Under all circumstances we always encourage you to contact your private physician who remains a resource for coordinating your care. When calling for follow-up care, please make the office aware that this follow-up is from your recent emergency room visit. If for any reason you are refused follow-up, please contact the [facility] Emergency Department at and asked to speak to the emergency department charge nurse. If you do not have a primary care doctor, please follow up with the clinics below within 3-5 days. [facility] [address] [place] [address] [place] [address] Please follow-up with your primary care physician. We change your blood pressure medication as it may have been the cause of your swelling of your lip. Please try the new medication if you have any problems please return to ED. <Hussein Lopez - Last Filed: 10/15/20 19:15> ED HPI GENERAL MEDICAL PROBLEM - General Source of Information: Reports: Patient History Limitations: Reports: No Limitations - History of Present Illness INITIAL COMMENTS - FREE TEXT/NARRATIVE: 55-year-old female with history of HTN, DM 2, asthma, hypothyroidism presents with left upper face swelling noted 1.5 hours ago. She takes losartan for high blood pressure. She then started noticing left-sided chest pain 1 hour ago. Chest pain is described as dull aching sensation, constant, rated 3/10, nonexertional, nonpleuritic, nonradiating. She denies fever, chills, shortness of breath, nausea, vomiting, palpitations, sweats, focal numbness or weakness. She has a history of insomnia and she did not take her sleeping pills today so she stayed up all night. ROS: A 10-point review of systems, other than pertinent positives and negatives as stated per HPI, is otherwise negative Past medical history: No additional pertinent history Past Surgical history: No additional pertinent history Social history: No additional pertinent history Family history: No additional pertinent history PHYSICAL EXAM General: AOx4, GCS = 15, No distress HEENT: dry mucous membrane, Mallampati score = 2, left tongue and left upper lip edema, no stridor, no hoarseness, not drooling. Neck: supple, no meningismus, no Kernig or Brudzinski, no cervical lymphadenop athy Cardiac: S1S2 RRR Chest Wall: 100% reproducible left-sided chest wall tenderness Respiratory: CTAB, no crackles or rales, no wheezing Abdomen: Soft, nontender, no rebound or guarding, nondistended, no pulsatile mass. 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 Musculoskeletal History: pt wearing camboot, left leg "slipped on ice" Psychiatric History: Reports: Depression Endocrine/Metabolic History: Reports: Diabetes, Type II Hematologic History: Reports: None Immunologic History: Reports: None Oncologic (Cancer) History: Reports: Colon Dermatologic History: Reports: None - Infectious Disease History Infectious Disease History: Reports: Chicken Pox - Past Surgical History GI Surgical History: Reports: Colon, Other (See Below) Other GI Surgeries/Procedures: sugery for colon cancer Female Surgical History: Reports: Section Social & Family History - Family History Family Medical History: No Pertinent Family History - Caffeine Use Caffeine Use: Reports: Coffee ED ROS GENERAL - Review of Systems Review Of Systems: See Below (see dictation) ED EXAM, GENERAL - Physical Exam Exam: See Below (see dictation) #1 Interpretation EKG Interpretation Comments: Heart rate = 64 bpm, normal sinus rhythm, TW inversion on III, normal QRS interval, no STEMI. EKG and rhythm strip interpreted by me at 0531 Course - Vital Signs Last Recorded V/S: Last Vital Signs Temp 96.8 F L 10/14/20 05:40 Pulse 62 10/14/20 10:40 Resp 18 10/14/20 10:40 BP 149/77 H 10/14/20 10:40 Pulse Ox 99 10/14/20 10:40 - Orders/Labs/Meds Labs: Laboratory Tests 10/14/20 10/14/20 10/14/20 Range/Units 05:38 05:38 08:40 WBC 6.32 (4.0-11.0) K/uL RBC 4.17 L (4.30-5.90) M/uL Hgb 11.8 L (12.0-16.0) g/dL Hct 37.3 (36.0-46.0) % MCV 89.4 (80.0-98.0) fL MCH 28.3 (27.0-32.0) pg MCHC 31.6 (31.0-37.0) g/dL RDW Std Deviation 51.3 (28.0-62.0) fl RDW Coeff of Grace 16 H (11.0-15.0) % Plt Count 285 (150-400) K/uL MPV 10.60 (7.40-12.00) fL Neut % (Auto) 50.9 (48.0-80.0) % Lymph % (Auto) 39.2 (16.0-40.0) % [place] % (Auto) 8.4 (0.0-15.0) % Eos % (Auto) 1.3 (0.0-7.0) % Baso % (Auto) 0.2 (0.0-1.5) % Neut # (Auto) 3.2 (1.4-5.7) K/uL Lymph # (Auto) 2.5 H (0.6-2.4) K/uL [place] # (Auto) 0.5 (0.0-0.8) K/uL Eos # (Auto) 0.1 (0.0-0.7) K/uL Baso # (Auto) 0.0 (0.0-0.1) K/uL Nucleated RBC % 0.0 /100WBC Nucleated RBCs # 0 K/uL Sodium 142 (136-145) mmol/L Potassium 3.5 (3.5-5.1) mmol/L Chloride 106 (98-107) mmol/L Carbon Dioxide 27.9 (21.0-32.0) mmol/L BUN 17 (7.0-18.0) mg/dL Creatinine 1.0 (0.6-1.0) mg/dL Est Cr Clr Drug Dosing 56.53 mL/min Estimated GFR (MDRD) > 60.0 ml/min Glucose 102 (74-106) mg/dL Calcium 8.7 (8.5-10.1) mg/dL Total Bilirubin 0.4 (0.2-1.0) mg/dL AST 11 L (15-37) IU/L ALT 13 L (14-63) IU/L Alkaline Phosphatase 110 (46-116) U/L Troponin I < 0.050 < 0.050 (0.000-0.056) ng/mL Total Protein 7.3 (6.4-8.2) g/dL Albumin 3.6 (3.4-5.0) g/dL Globulin 3.7 (2.6-4.0) g/dL Albumin/Globulin Ratio 1.0 (0.9-1.6) Meds: Medications Discontinued Medications Generic Name Dose Route Start Last Admin Trade Name Freq PRN Reason Stop Dose Admin Diphenhydramine HCl 50 mg 10/14/20 05:42 10/14/20 05:51 Benadryl IVPUSH 10/14/20 05:43 50 mg ONETIME ONE Administration Famotidine 20 mg 10/14/20 05:42 10/14/20 05:51 Pepcid IVPUSH 10/14/20 05:43 20 mg ONETIME ONE Administration Lactated Ringer's 1,000 mls @ 999 mls/hr 10/14/20 05:42 10/14/20 05:50 Ringers, Lactated IV 10/14/20 06:42 999 mls/hr .BOLUS ONE Administration Ketorolac Tromethamine 30 mg 10/14/20 07:01 10/14/20 07:17 Toradol IVPUSH 10/14/20 07:02 30 mg ONETIME ONE Administration Methylprednisolone Sodium Succinate 125 mg 10/14/20 05:42 10/14/20 05:51 Solu-Medrol IVPUSH 10/14/20 05:43 125 mg ONETIME ONE Administration Sodium Chloride 2.5 ml 10/14/20 05:31 Saline Flush FLUSH ASDIRECTED PRN Keep Vein Open Sodium Chloride 10 ml 10/14/20 05:31 Saline Flush FLUSH ASDIRECTED PRN Keep Vein Open - Re-Assessments/Exams Free Text/Narrative Re-Assessment/Exam: 10/14/20 05:46 Ordered IV fluids, Solu-Medrol, Pepcid, Benadryl IV 10/14/20 07:00 Patient signed out to Dr. Merchant for disposition. Differential diagnosis includes but is not limited to: ACS, chest wall pain, pneumonia, PE, pneumothorax, chest wall pain, pulmonary edema/CHF, aortic dissection, pericarditis, intra-abdominal process. Patient's exam demonstrated reproducible chest wall tenderness, presentation is consistent with chest wall pain. Given the EKG and clinical history, I do not suspect pericarditis. There is no evidence of pneumothorax or infiltrate on CXR. Aortic dissection was considered, however the presenting symptoms were uncharacteristic of aortic dissection. Chest X-ray shows no evidence of mediastinal widening and there are strong, equal and symmetric pulses. Given the current presentation, I do not suspect aortic dissection. The patients history, chest X-ray, and exam do not suggest pulmonary edema/congestive heart failure. Pulmonary embolism was considered but felt unlikely due to the compendium of presenting elements leading to a low pre-test probability followed by a negative PERC rule. Intra-abdominal pathology felt unlikely given benign/non tender abdominal exam. Acute coronary syndrome was considered but there are negative serial biomarkers, no acute ischemic EKG changes, and the patient has a low HEART score. Based on this, I feel that there is low risk for short-term major adverse cardiac event. The patient's initial HEART score is <3. The HEART pathway was utilized and 2 sets of troponin by 3 hours, did not demonstrate any changes or uptrending. Their EKG was nonischemic. Studies demonstrate this patient has a 30 day MACE score of 1.7% Departure - Departure Condition: Good - Discharge Information *PRESCRIPTION DRUG MONITORING PROGRAM REVIEWED*: Not Applicable *COPY OF PRESCRIPTION DRUG MONITORING REPORT IN PATIENT KISHA: Not Applicable
[2020-10-14] MEDS ORDERED: methylPREDNISolone Sodium Succinate 125 MG/2 ML SDV IVPUSH ONE (05:42)
[2020-10-14] MEDS ORDERED: Lactated Ringers 1,000 ML IV ONE (05:42)
[2020-10-14] MEDS ORDERED: diphenhydrAMINE 50 MG/ML SDV IVPUSH ONE (05:42)
[2020-10-14] MEDS ORDERED: Famotidine 20 MG/2 ML SDV IVPUSH ONE (05:42)
--- NOTE | 2020-10-14 06:20 | CR ---
Indication: Chest pain Technique: Chest 1 view Comparison: 08/07/2019 Findings/Impression: Cardiovascular and mediastinum: Heart size and vasculature are normal in caliber and appearance. Mediastinum is within normal limits. Lungs and pleural space: No consolidation. Slight apical pleural thickening with an apparent small left apical nodular opacity. Follow-up to ensure stability. No pleural effusions. No pneumothorax seen. Bones and soft tissues: No significant change. Dictated by Yusuf Jones MD @ Oct 14 2020 6:11AM Signed by Dr. Yusuf Jones @ Oct 14 2020 6:18AM
[2020-10-14 06:40] LABS: BLOOD UREA NITROGEN,BUN 17 mg/dL (7.0-18.0); CARBON DIOXIDE,CO2 27.9 mmol/L (21.0-32.0); CHLORIDE,CL 106 mmol/L (98-107); GLUCOSE RANDOM 102 mg/dL (74-106); POTASSIUM,K 3.5 mmol/L (3.5-5.1); SODIUM,NA 142 mmol/L (136-145)
[2020-10-14] MEDS ORDERED: Ketorolac 30 MG/ML SDV IVPUSH ONE (07:01)
== END 2020-10-14 10:39 | disposition home or self-care (01) ==
LOC: MW.ED 05:28
DX: T78.3XXA Angioneurotic edema, initial encounter (principal); R07.9 Chest pain, unspecified; I10 Essential (primary) hypertension; J45.909 Unspecified asthma, uncomplicated; F32.9 Major depressive disorder, single episode, unspecified; E11.9 Type 2 diabetes mellitus without complications; E03.9 Hypothyroidism, unspecified; Z91.013 Allergy to seafood; Z79.899 Other long term (current) drug therapy
CPT/HCPCS: 36415; 71045; 80053; 84484; 85025; 93005; 96374; 96375; 99285; J1200; J1885; J2930; J3490; J7120; 93010; 99283